=== PATIENT | male | born 1980 | race African-American/Black ===

== ENCOUNTER 2023-06-05 08:51 | Emergency (ER) | payer MEDICAID ==
[~2023-06-05] VITALS: Ht 195.6 cm; Wt 97.5 kg
[2023-06-05 09:19] VITALS: BP_SYST 115; PULSE 96; RESP 17; TEMP 97; O2SAT 97
== END 2023-06-05 12:33 | disposition home or self-care (01) ==
LOC: SED 08:51
DX: N28.89 Other specified disorders of kidney and ureter (principal); J98.4 Other disorders of lung; F15.10 Other stimulant abuse, uncomplicated; Z79.899 Other long term (current) drug therapy
CPT/HCPCS: 71046-TC; 71250-TC; 76376; 99284